=== PATIENT | male | born 1945 | race Caucasian/White ===

== ENCOUNTER → 2017-11-17 | Outpatient (CLI) | payer MEDICARE, OTHER ==
[~2017-11-17] MED LIST: ALFU10; ALLEGRA ALLERG180 M1; ANTARA30 MG PO; ASPI81CH PO; CVS FISH OIL 11 EACH PO; Exforge 10-3201 EACH PO; Ferrous Sulfat325 MG; HUMALOG KW200 UNIT/1 SQ; HYDCHL12.5; HYDR10; INSULANPEN; LISHYD2025 PO; NEBI5; PANT40 PO; SIMV40 PO; SPIR50 PO
[2017-11-18 10:59] LABS: Protein, Urine Quantitative 113.6 mg/dL (0.0-11.9)
== END ==
LOC: LAB 06:00
PROVIDERS: Internal Medicine
DX: N18.9 Chronic kidney disease, unspecified (principal); Z86.2 Personal history of diseases of the blood and blood-forming organs and certain disorders involving the immune mechanism
CPT/HCPCS: 81050; 82570; 84156

== ENCOUNTER → 2018-02-13 | Outpatient (CLI) | payer MEDICARE, OTHER ==
[2018-02-13 14:06] LABS: Albumin, Blood 3.4 g/dL (3.4-5.0); Anion Gap 6 mmol/L (6-16); Blood Urea Nitrogen 23 mg/dL (8-24); Bun/Creatinine Ratio 20.9 (12.0-20.0); CO2, Blood 24 mmol/L (21-32); Calcium, Blood 8.9 mg/dL (8.5-10.1); Chloride, Blood 109 mmol/L (98-108); Glomerular Filtration Rate >60 (60-); Glucose, Blood 209 mg/dL (70-99); Phosphorus, Blood 3.3 mg/dL (2.5-4.9); Sodium, Blood 139 mmol/L (136-145)
[2018-02-13 14:08] LABS: Appearance, Urine Clear (Clear); Bilirubin, Urine Neg (Neg); Blood, Urine Neg (Neg); Color, Urine Yellow (P-Yellow); Glucose Qualitative, Urine Neg (Neg); Ketones, Urine Neg (Neg); Leukocyte Esterase, Urine Neg (Neg); Nitrite, Urine Neg (Neg); Protein, Urine 3+ (Neg); Source, Urine Clean Catch; Urobilinogen, Urine NORM (Normal)
[2018-02-13 14:17] LABS: Protein, Urine Random 81.4 mg/dL (0.0-11.9)
[2018-02-13 15:46] LABS: Bacteria Not Seen /hpf; Red Blood Cells, Urine 0-2 /hpf (0-2); Squamous Epithelial Cells Few /hpf (Few); White Blood Cells, Urine 0-2 /hpf (0-5)
== END | disposition home or self-care (01) ==
LOC: LAB SHORT 12:10 → OLS 12:10
PROVIDERS: Internal Medicine
DX: N18.9 Chronic kidney disease, unspecified (principal)
CPT/HCPCS: 36415; 80069; 81001; 82570; 84156

== ENCOUNTER 2018-12-04 13:06 | Day surgery (SDC) | payer MEDICARE, OTHER ==
[~2018-12-04] VITALS: Ht 170.2 cm; Wt 108.1 kg
[~2018-12-04 13:06] MED LIST changes: +ALFU10 PO; +AMLO10 PO; +Aldactone100 MG PO; +Aspirin EC81 MG PO; +Avapro300 MG PO; +FISH OIL 1,0001 EAC1 PO; +Ferrous Sulfat325 M2 PO; +HYDCHL12.5 PO; +HYDRA25 PO; +Humalog Mi100 UNIT/4 SC; +INSULANPEN SC; +NEBI5 PO; +POLY500 PO; +Penlac6.6 ML TOP; +Super B Comple1 EAC2 PO; +Zocor20 MG PO
== END 2018-12-04 14:25 | disposition home or self-care (01) ==
LOC: ORSCSDS 13:06
PROVIDERS: Internal Medicine Gastroenterology
PROC: 0DB48ZX Excision of Esophagogastric Junction, Via Natural or Artificial Opening Endoscopic, Diagnostic (ICD-10-PCS; principal; 2018-12-04 13:00)
DX: K22.70 Barrett's esophagus without dysplasia (principal); K44.9 Diaphragmatic hernia without obstruction or gangrene; E11.9 Type 2 diabetes mellitus without complications; I10 Essential (primary) hypertension; B15.9 Hepatitis A without hepatic coma; G47.33 Obstructive sleep apnea (adult) (pediatric); K21.9 Gastro-esophageal reflux disease without esophagitis; E66.9 Obesity, unspecified; Z68.35 Body mass index [BMI] 35.0-35.9, adult; Z79.82 Long term (current) use of aspirin; Z79.4 Long term (current) use of insulin; Z79.899 Other long term (current) drug therapy
CPT/HCPCS: 82947; 88305; J7120

== ENCOUNTER 2021-03-31 17:24 | Inpatient (IN) | payer MEDICARE, OTHER ==
[~2021-03-31] VITALS: Ht 167.6 cm; Wt 90.1 kg
[~2021-03-31 17:24] MED LIST changes: +HUMALOG MI100 UNIT/1 SC; -Humalog Mi100 UNIT/4 SC
[2021-03-31 17:58] LABS: BASOPHILS ABSOLUTE AUTO 0.04 K/mm3 (0.00-0.23); BASOPHILS PERCENT AUTO 1 % (0-2); EOSINOPHILS ABSOLUTE AUTO 0.09 K/mm3 (0.00-0.68); EOSINOPHILS PERCENT AUTO 2 % (0-6); Hemoglobin 11.8 g/dL (13.5-17.5); IMMATURE GRAN ABSOLUTE AUTO 0.01 K/mm3 (0.00-0.10); IMMATURE GRAN PERCENT AUTO 0 % (0-1); LYMPHOCYTES ABSOLUTE AUTO 0.89 K/mm3 (0.84-5.20); LYMPHOCYTES PERCENT AUTO 17 % (21-46); MONOCYTES ABSOLUTE AUTO 0.45 K/mm3 (0.16-1.47); MONOCYTES PERCENT AUTO 9 % (4-13); Mean Corpuscular HGB Conc 33.7 g/dL (31.5-36.5); Mean Corpuscular Volume 92 fL (80-100); Mean Platelet Volume 10.8 fL (9.1-12.4); NEUTROPHILS ABSOLUTE AUTO 3.84 K/mm3 (1.96-9.15); NEUTROPHILS PERCENT AUTO 72 % (41-73); Platelet Count 148 K/mm3 (150-400); RDW Coefficient Variation 12.4 % (11.7-14.2); RDW Standard Deviation 41.7 fL (35.1-46.3); Red Blood Cell Count 3.81 M/mm3 (4.30-5.90); White Blood Cell Count 5.32 K/mm3 (4.00-11.30)
[2021-03-31 18:17] LABS: International Normalized Ratio 1.02
[2021-03-31 18:30] LABS: Alanine Aminotransfer (ALT/SGP 65 U/L (12-78); Albumin, Blood 3.3 g/dL (3.4-5.0); Albumin/Globulin Ratio 0.8 (0.8-1.8); Alk Phos 241 U/L (50-136); Anion Gap 5 mmol/L (6-16); Aspartate Aminotrans (AST/SGOT 38 U/L (12-37); Bilirubin, Total 0.4 mg/dL (0.1-1.0); Blood Urea Nitrogen 24 mg/dL (8-24); CO2, Blood 27 mmol/L (21-32); Calcium, Blood 9.1 mg/dL (8.5-10.1); Chloride, Blood 108 mmol/L (98-108); Creatinine, Blood 1.09 mg/dL (0.60-1.20); Globulin, Blood 4.2 g/dL (2.2-4.0); Glomerular Filtration Rate >60 (60-); Glucose, Blood 158 mg/dL (70-99); Potassium, Blood 4.4 mmol/L (3.5-5.5); Sodium, Blood 140 mmol/L (136-145); Total Protein, Blood 7.5 g/dL (6.4-8.2)
[2021-03-31] MEDS ORDERED: BASAGLAR K100 UNIT/1 SC ×2 (18:47→23:55)
[2021-03-31] MEDS ORDERED: TRAM50 (18:48)
[2021-03-31 19:14] LABS: Magnesium, Blood 1.5 mg/dL (1.6-2.4)
[2021-03-31 19:30] LABS: Source, Urine Clean Catch
[2021-03-31 19:40] LABS: Appearance, Urine Clear (Clear); Bilirubin, Urine Neg (Neg); Blood, Urine Neg (Neg); Color, Urine Yellow (P-Yellow); Glucose Qualitative, Urine Neg (Neg); Ketones, Urine Neg (Neg); Leukocyte Esterase, Urine Neg (Neg); Nitrite, Urine Neg (Neg); Protein, Urine 1+ (Neg); Specific Gravity, Urine 1.015 (1.003-1.022); Urobilinogen, Urine NORM (Normal)
[2021-03-31 22:11] LABS: Thyroid Stimulating Hormone 1.01 uIU/mL (0.360-4.800)
--- NOTE | 2021-04-01 04:23 | NUR ---
SHIFT SUMMARY RECIEVED REPORT FROM SANDIE SCHERER, ED @ 2230. ARRIVED TO MEDICAL FLOOR @ 2245 VIA [place]. TRANSFER ASSISTANCE REQUIRED FROM GURNEY TO BED. ORIENTED TO ROOM AND CALL SYSTEM. A/O, ABLE TO MAKE NEEDS KNOWN. COOPERATIVE WITH CARE. CALLS AND ANSWERS QUESTIONS APPROPRIATELY. NO C/O PAIN/DISCOMFORT. RECIEVED IV HYDRATIONS WITHOUT COMPLICATIONS. TELE RUNNING SR IN 60s PER A R SPECIALIST. APPEARED TO REST MINIMALLY SINCE ARRIVAL. CPAP/BIPAP PROTOCOL ORDERED BY ON-CALL PROVIDER; SET UP BY RT. NO ACUTE CHANGES NOTED. BED REMAINS IN LOWEST POSITION. CALL LIGHT AND BELONGINGS WITHIN REACH. CONTINUE WITH CURRENT PLAN OF CARE. REPORT TO JEFFREY SCHERER.
[2021-04-01 06:29] LABS: BASOPHILS ABSOLUTE AUTO 0.05 K/mm3 (0.00-0.23); BASOPHILS PERCENT AUTO 1 % (0-2); EOSINOPHILS ABSOLUTE AUTO 0.12 K/mm3 (0.00-0.68); EOSINOPHILS PERCENT AUTO 2 % (0-6); Hematocrit 33.6 % (37.0-53.0); Hemoglobin 11.4 g/dL (13.5-17.5); IMMATURE GRAN ABSOLUTE AUTO 0.02 K/mm3 (0.00-0.10); IMMATURE GRAN PERCENT AUTO 0 % (0-1); LYMPHOCYTES ABSOLUTE AUTO 0.81 K/mm3 (0.84-5.20); LYMPHOCYTES PERCENT AUTO 16 % (21-46); MONOCYTES ABSOLUTE AUTO 0.48 K/mm3 (0.16-1.47); MONOCYTES PERCENT AUTO 10 % (4-13); Mean Corpuscular HGB 30.6 pg (26.0-34.0); Mean Corpuscular HGB Conc 33.9 g/dL (31.5-36.5); Mean Corpuscular Volume 90 fL (80-100); Mean Platelet Volume 11.3 fL (9.1-12.4); NEUTROPHILS ABSOLUTE AUTO 3.57 K/mm3 (1.96-9.15); NEUTROPHILS PERCENT AUTO 71 % (41-73); Platelet Count 136 K/mm3 (150-400); RDW Coefficient Variation 12.3 % (11.7-14.2); RDW Standard Deviation 40.7 fL (35.1-46.3); Red Blood Cell Count 3.72 M/mm3 (4.30-5.90); White Blood Cell Count 5.05 K/mm3 (4.00-11.30)
[2021-04-01 06:47] LABS: Alanine Aminotransfer (ALT/SGP 58 U/L (12-78); Albumin, Blood 2.9 g/dL (3.4-5.0); Albumin/Globulin Ratio 0.8 (0.8-1.8); Alk Phos 212 U/L (50-136); Anion Gap 5 mmol/L (6-16); Aspartate Aminotrans (AST/SGOT 36 U/L (12-37); Bilirubin, Total 0.6 mg/dL (0.1-1.0); Blood Urea Nitrogen 20 mg/dL (8-24); Bun/Creatinine Ratio 22.8 (12.0-20.0); CHOL/HDL RATIO 2.2; CO2, Blood 26 mmol/L (21-32); Calcium, Blood 9.1 mg/dL (8.5-10.1); Chloride, Blood 108 mmol/L (98-108); Cholesterol 119 mg/dL (50-200); Creatinine, Blood 0.88 mg/dL (0.60-1.20); Globulin, Blood 3.8 g/dL (2.2-4.0); Glomerular Filtration Rate >60 (60-); Glucose, Blood 132 mg/dL (70-99); HDL Cholesterol 53 mg/dL (>39); LDL/HDL RATIO 0.8; Low Density Lipoprotein Chol 44 mg/dL (0-110); Potassium, Blood 4.3 mmol/L (3.5-5.5); Sodium, Blood 139 mmol/L (136-145); Total Protein, Blood 6.7 g/dL (6.4-8.2); Triglycerides 108 mg/dL (30-160); Very Low Density Lipoprot Chol 21 mg/dL (6-32)
--- NOTE | 2021-04-01 16:33 | NUR ---
mri, pt eval, in room, pt recommended snf for rehabilitation due to challenge walking and getting up to home, pt appeares to be less stable standing than he was this am, challenge for him to get legs over side of bed and sit up, states that it is better than he has been in 3 days, will continue to monitor and treat until share bsr with noc nurse
[2021-04-01 17:27] LABS: International Normalized Ratio 1.04; Prothrombin Time Results 11.2 Sec (9.7-11.5)
--- NOTE | 2021-04-01 18:47 | NUR ---
a+o, worked with pt, waiting for biopsy, call light in reach, infusing with no s/sx of infection or infiltration, will share bsr with pt and noc nurse and assess and treat pt until then
--- NOTE | 2021-04-02 03:54 | NUR ---
SHIFT SUMMARY A/O, ABLE TO MAKE NEEDS KNOWN. COOPERATIVE WITH CARE. CALLS AND ANSWERS QUESTIONS APPROPRIATELY. NO C/O PAIN/DISCOMFORT. TELE RUNNING SR IN 60s PER LOADERS. UP TO BATHROOM /c 2P MOD; PT FOLLOWING. APPEARED TO REST WELL OVERNIGHT. CPAP @ HS INITIALLY, BUT CHOSE NOT TO WEAR /p AROUND 0000. NO ACUTE CHANGES NOTED OVERNIGHT. BED REAMINED IN LOWEST POSITION; ALARM ON. CALL LIGHT AND BELONGINGS WITHIN REACH. CONTINUE WITH CURRENT PLAN OF CARE. REPORT TO ONCOMING RN.
[2021-04-02 04:54] LABS: BASOPHILS ABSOLUTE AUTO 0.05 K/mm3 (0.00-0.23); BASOPHILS PERCENT AUTO 1 % (0-2); EOSINOPHILS ABSOLUTE AUTO 0.12 K/mm3 (0.00-0.68); EOSINOPHILS PERCENT AUTO 2 % (0-6); Hematocrit 37.2 % (37.0-53.0); Hemoglobin 12.6 g/dL (13.5-17.5); IMMATURE GRAN ABSOLUTE AUTO 0.01 K/mm3 (0.00-0.10); IMMATURE GRAN PERCENT AUTO 0 % (0-1); LYMPHOCYTES ABSOLUTE AUTO 0.94 K/mm3 (0.84-5.20); LYMPHOCYTES PERCENT AUTO 17 % (21-46); MONOCYTES ABSOLUTE AUTO 0.49 K/mm3 (0.16-1.47); MONOCYTES PERCENT AUTO 9 % (4-13); Mean Corpuscular HGB 30.1 pg (26.0-34.0); Mean Corpuscular HGB Conc 33.9 g/dL (31.5-36.5); Mean Corpuscular Volume 89 fL (80-100); Mean Platelet Volume 10.9 fL (9.1-12.4); NEUTROPHILS ABSOLUTE AUTO 3.95 K/mm3 (1.96-9.15); NEUTROPHILS PERCENT AUTO 71 % (41-73); Platelet Count 165 K/mm3 (150-400); RDW Coefficient Variation 12.2 % (11.7-14.2); RDW Standard Deviation 39.8 fL (35.1-46.3); Red Blood Cell Count 4.18 M/mm3 (4.30-5.90); White Blood Cell Count 5.56 K/mm3 (4.00-11.30)
[2021-04-02 05:10] LABS: Anion Gap 2 mmol/L (6-16); Blood Urea Nitrogen 17 mg/dL (8-24); Bun/Creatinine Ratio 19.2 (12.0-20.0); CO2, Blood 28 mmol/L (21-32); Calcium, Blood 9.3 mg/dL (8.5-10.1); Chloride, Blood 106 mmol/L (98-108); Creatinine, Blood 0.89 mg/dL (0.60-1.20); Glomerular Filtration Rate >60 (60-); Glucose, Blood 111 mg/dL (70-99); Magnesium, Blood 1.5 mg/dL (1.6-2.4); Potassium, Blood 4.1 mmol/L (3.5-5.5); Sodium, Blood 136 mmol/L (136-145)
--- NOTE | 2021-04-02 10:40 | NUR ---
PT C/O INCREASED WEAKNESS PT SITTING UP IN CHAIR. FLIGHT DECK OFFICER IN ROOM. VSS. PT REPORTS "FEELING MORE WEAK. THIS MORNING I WAS ABLE TO PUSH MY SELF UP WITH MY ARMS AND NOW I CANT. I ALMOST FEEL LIKE I DID WHEN I CAME IN." PT A&O X4. LEFT ARM AND LEG SLIGHTLY WEAKER/SLOWER THAN RIGHT SIDE. PROFESSIONAL ADVISOR STRONG. SMILE EQUAL, TONGUE THRUST MIDLINE. UP WITH 2 ASSIST TO BED WITH FWW AND GAIT BELT. CALL TO DR GARCIA- SEE NEW ORDER.
--- NOTE | 2021-04-02 17:57 | NUR ---
SUMM- PT ALERT AND ORIENTED X4. THIS AM THE ONLY NEURO DEFICIT WAS L FOOT WEAKNESS. AT AROUND 1030 PT STARTED COMPLAINING OF INCREASING L ARM WEAKNESS IN ADDITION TO L FOOT WEAKNESS, ALSO TROUBLE FINDING WORDS OCCASIONALLY, AND A DROOP ABOVE R EYE. DR GARCIA NOTIFIED OF CHANGES, CT ORDERED- NO CHANGE FROM ORIGIONAL. PT WORKED WITH PT AND OT. ABLE TO AMBULATE TO [place] AND BATHROOM WITH WALKER AND GAIT BELT SBA, NEEDS CONT CUES TO STAY OVER WALKER AND NOT LEAN FORWARD, ALSO PT STANDS ON L SIDE OF WALKER. EXHAUSTED THIS PM AND FELL ASLEEP IN THE CHAIR. BACK TO BED, REQ TO HAVE DINNER SAVED TO HE CAN REST. CALL LIGHT IN REACH. PLAN FOR NECK BX 04/03
--- NOTE | 2021-04-03 05:22 | NUR ---
SHIFT SUMMARY AOX4-FORGETFUL LAST NIGHT, REPORTED HE FELT "CONFUSED" ANSWERED ORIENTATION QUESTIONS CORRECTLY. FOLLOWS DIRECTIONS. THIS AM PT REPORTS HE FEELS "SHARP A TACK." SLOW TO RESPOND, HAS DIFFICULTY FINDING WORDS @TIMES. ONLY GROSS MOVEMENT c LLE, ABLE TO RAISE UP & DOWN, CANT DO PEDAL PUSHES-WEAK. HAS WEAK GAIT, LEANS FORWARD & TO THE LEFT WHEN STANDING. DENIES PAIN, N/V OR SOB. WORE CPAP T/O NIGHT. SOFT TISSUE MASS ON BACK OF NECK, PLAN TO HAVE BIOPSY TODAY 04/03/21. CALL LIGHT IN REACH. [facility].
--- NOTE | 2021-04-03 18:11 | NUR ---
SHIFT SUMMARY PT AxOx4. PLEASANT AND COOPERATIVE WITH CARE. L SIDED WEAKNESS R/T CVA. PT REPORTS WEAKNESS FEELS WORSE TODAY. PT WORKED WITH PT/OT TODAY. REPORTED FEELING VERY TIRED AFTER THERAPIES. PT WENT FOR BIOPSY OF SOFT TISSUE MASS IN NECK TODAY. TODAY IS THE PATIENT'S BIRTHDAY. FAMILY IN TO VISIT AND CELEBRATE WITH HIM, WHICH BOOSTED PATIENT'S SPIRITS. PT IS 2 MAX ASSIST WITH FWW AND GB D/T GROSS MOVEMENT TO LLE. PT'S , CAITLIN BROUGHT IN FOOT BRACE FOR FOOT DROP IN L FOOT. PT REPORTED LOW APPETITE TODAY. REQUESTED HIS DINNER TRAY BE HELD SO HE CAN REST. PT DENIES PAIN. VITALS REVIEWED. CALL LIGHT IN REACH. DENIES ANY NEEDS AT THIS TIME.
--- NOTE | 2021-04-04 05:37 | NUR ---
SHIFT SUMMARY AOX3. ANSWERS ORIENTATION QUESTIONS CORRECTLY. SLOW TO RESPOND, STUTTERS, NEW GARBLED/SLURRED SPEECH THIS AM. NOTICED INCREASED WEAKNESS IN L SIDE COMPARED TO PREVIOUS NIGHT. NO LONGER CAN GROSSLY LIFT LLE & NEEDS HELP LIFTING LUE, STATES WEAKNESS IS R/T THERAPY "WORKING HIM HARD". REPORTS N/T T/O WHOLE L SIDE OF BODY. L HAND WATER SOFTENER INSTALLER WEAKER THEN R HAND. HEAD IS TILTING TO R SIDE, HAS NOTICABLE L FACIAL DROOP THIS AM. WHEN GIVING AM MEDS PT HAD DIFFICULTY FINDING HIS CUP & UNABLE TO FIND STRAW. WHEN DRINKING PT COUGHED, HAD WATER DRIP OUT SIDE OF MOUTH & HAD DIFFICULTY SWALLOWING PILL-ALL NEW FOR PT. NEW VISION CHANGES THIS AM, REPORTS HE CAN'T "FOCUS" & "CANT SEE YOUR FACE." WHEN ASKED HOW MANY FINGERS HELD UP PT UNABLE TO GET CORRECTLY & UNABLE TO REPORT GLOVE OR CLOTHING COLOR. INFORMED DR HILL AT 0612 OF NEW SYMPTOMS, HE ORDERED STAT HEAD CT & SP EVAL. VSS. TELE NSR @70. DENIES PAIN, N/V OR DYSPNEA. PT UNABLE TO USE URINAL INDEPENDENTLY SINCE VISION CHANGES. PT CURRENTLY DOWN @IMAGING, WILL INFORM ONCOMING NURSE OF CHANGES.
--- NOTE | 2021-04-04 17:10 | NUR ---
SHIFT SUMMARY PT Ax0x4. PLEASANT AND COOPERATIVE WITH CARE. SIGNIFICANT NEUROLOGICAL SYMPTOM CHANGE NOTED TODAY COMPARED TO YESTERDAY. PT DISPLAYED SLURRED SPEECH, GARBLED SPEECH, R FACIAL DROOP, VISUAL IMPAIRMENTS AND SEVERE WEAKNESS TO L EXTREMITIES. PT CALLED IN EARLY TO DISCUSS EVOLVING SYMPTOMS AND PLAN OF CARE. PT WORKED WITH PT/OT TODAY. CHANGED TO BEDREST/BEDPAN D/T SEVERE WEAKNESS. SPEECH EVAL TODAY- NEW SWALLOWING PRECAUTIONS IMPLEMENTED. PT HAD CT OF HEAD AND MRI OF HEAD TODAY. NEURO CONSULT PLACED TODAY BY DR GARCIA. DR GAVIRIA EXPECTED TO MEET WITH PATIENT, FAMILY AND DR GARCIA THIS EVENING. CARE PLAN STILL IN PROCESS. PT CURRENTLY RESTING IN BED WITH CALL LIGHT IN REACH. AT BEDSIDE. BOTH DENY ANY NEEDS AT THIS TIME.
--- NOTE | 2021-04-05 04:12 | NUR ---
SHIFT SUMMARY ADMITTED FOR CVA (SUBACUTE). LEFT SIDED DEFICITS. FULL CODE. PLAN IS FOR FAMILY AND HOSPITALIST TO DETERMINE A PLAN FOR ANTICOAGULATION THERAPY. DR GAVIRIA IS NEUROLOGY CONSULT. DYSPHAGIA PRECAUTIONS IN PLACE. MASS FOUND ON BACK OF THE NECK MAY BE DEALT WITH OUTPT, DR KNIGHT IS ONCOLOGY CONSULT. PT WILL NEED PHYSICAL, OCCUPATIONAL, AND SPEECH THERAPIES. CPAP @ HS FOR LUZMARIA. TELEMETRY: NSR @ 77 BPM (AFIB WAS NOTED ON ADMIT, SPONTANIOUSLY RESOLVED).
--- NOTE | 2021-04-05 14:00 | NUR ---
Review of patient and his witfe with chaplian to formulte a plan of support for all the changes and decions they will have to make. Will assess their needs.
--- NOTE | 2021-04-05 16:23 | NUR ---
Dr espana at bedside discussing pt needs and possible plans of care. Will follow up with pt plan may be transfer.
[2021-04-05 17:49] LABS: International Normalized Ratio 1.1; Prothrombin Time Results 11.8 Sec (9.7-11.5)
--- NOTE | 2021-04-05 18:32 | NUR ---
SHIFT SUMMARY NO ACUTE CHANGES T/O SHIFT, A&O, LEFT SIDED DEFICITS CONTINUE. WORKING WITH PT/OT/ST. CALM AND COOPERATIVE c CARE. ONCOLOGIST DISCUSSES c PT AND FAMILY BIOPSY RESULTS AND POSSIBLE TRANSFER TO [facility] FOR SURGICAL REMOVAL OF MASS. NO UPDATE AT THIS TIME OF WHEN TRANSFER WILL TAKE PLACE. HEPARIN DRIP ORDERED. ACCURATE WEIGHT PROVIDED TO PHARAMCY, WAITING MEDICATION AND DOSE ORDERS AT THIS TIME. WILL REPORT TO ONCOMING RN. PT DENIES ANY PAIN OR DISTRESS T/O SHIFT, DOES REPORT BEING UPSET REGARDING DIAGNOSIS. PT IS CURRENTLY RESTING IN BED WITH CALL LIGHT WITHIN REACH, DOES NOT TYPICALLY CALL. ROUTINE CHECKS COMPLETED AND FAMILY OFTEN PRESENT.
--- NOTE | 2021-04-06 00:54 | NUR ---
THIS LN TOOK OVER CARE ON 04/05/21 AT 2330 PATIENT IS A POST CVA PATIENT THAT HAS TRANSFERRED FROM THE MEDICAL FLOOR ON HEP GTT RUNNING AT 13UNITS/KG/HR AT 20ML/HR. PATIENT IS ALERT AND ORIENTATED X 4, ABLE TO MAKE NEEDS KNOWN AND FOLLOW COMMANDS, NIHSS WAS DONE FOR BASELINE UPON TRANSFERRING TO FLOOR, NIHSS 22, R-EYE PINPOINT AND SLUGGLISH, L-EYE 2 AND SLUGGLISH, L FIELD VISUAL CUT WITH RIGHT FIXED GAZE, INATTENTION TO LEFT. PATIENT WAS ABLE TO FOLLOW COMMANDS, LEFT ARM NOTED NON PURPOSEFUL MOVEMENT WITH NO MOVEMENT AGAINST GRAVITY NO SENSATION, LEFT LEG WAS NON PURPOSEFUL MOVEMENT WITH NO MOVEMENT AGAINST GRAVITY NO SENSATION, PATIENT HAS A LEFT SIDED FACIAL DROOP WITH NO SENSATION ON THE LEFT, PATIENT HAS DELAYED RESPONSE WITH MILD TO MODERATE EXPRESSIVE APAGHIA WHEN ASKED WHAT WAS TRANSPIRING IN THE PICTURE PATIENT STATED, " LOOKS LIKE THEY ARE BUILDING A HOUSE" PAIENT WAS ONLY ABLE TO SAY , "FIFTY" BUT UNABLE TO SAY FIFTY-FIFTY, " ALVARENGA" BUT NOT [place]Y, PATIENT WAS UNABLE TO TELL ME WHAT THE ITEMS WHERE IN THE PICTURE FOR GLOVE, ELADIA, ETC, MILD TO MODERATE DYSTHARIA NOTED WITH SLURRED WORDS BUT TELLIGIABLE, NIHSS IS IN THE CHART WITH HIS SCORES, HE IS A TWO HOUR NEURO CHECK AND THIS LN WILL CONTINUE TO MONITOR.
[2021-04-06 02:09] LABS: Hematocrit 37.3 % (37.0-53.0); Hemoglobin 12.9 g/dL (13.5-17.5); Mean Corpuscular HGB 30.8 pg (26.0-34.0); Mean Corpuscular HGB Conc 34.6 g/dL (31.5-36.5); Mean Corpuscular Volume 89 fL (80-100); Mean Platelet Volume 10.7 fL (9.1-12.4); Platelet Count 191 K/mm3 (150-400); RDW Coefficient Variation 12.4 % (11.7-14.2); RDW Standard Deviation 40.2 fL (35.1-46.3); Red Blood Cell Count 4.19 M/mm3 (4.30-5.90); White Blood Cell Count 6.22 K/mm3 (4.00-11.30)
[2021-04-06 02:25] LABS: Albumin, Blood 3.1 g/dL (3.4-5.0); Anion Gap 6 mmol/L (6-16); Blood Urea Nitrogen 38 mg/dL (8-24); Bun/Creatinine Ratio 29.9 (12.0-20.0); CO2, Blood 25 mmol/L (21-32); Calcium, Blood 9.1 mg/dL (8.5-10.1); Chloride, Blood 105 mmol/L (98-108); Creatinine, Blood 1.27 mg/dL (0.60-1.20); Glomerular Filtration Rate 59 (60-); Glucose, Blood 86 mg/dL (70-99); Phosphorus, Blood 3.8 mg/dL (2.5-4.9); Potassium, Blood 3.8 mmol/L (3.5-5.5); Sodium, Blood 136 mmol/L (136-145)
--- NOTE | 2021-04-06 13:17 | NUR ---
PT WITH SLIGHT NEURO IMPROVEMENT NOTED, PT WITH SLGIHT MOVEMENT OF LT HAND, BABINSKI REFELX INTACT TO FEET BIAT. PT A/O X4 (SEE ASSESSMENT). PT TOLERATES APPLESAUCE WITH MEDS VERY WELL AND THIN LIQUIDS, BUT HE SEEMS TO HAVE DIFFICULTY WITH MECHANICAL SOFT DIET. SPEECH THERAPY IS CONSULTED AND PT IS PLACED ON PUREE DIET AT THIS TIME.
--- NOTE | 2021-04-06 18:53 | NUR ---
SHIFT NOTE SEE NEURO ASSESSMENTS. PT C/O "JUMPING" LT LEG INTERMITTENTLY T/O THE DAY. PT REPORTS PAIN TO SARCOMA TO OCCIPUT BUT OTHERWISE DENIES PAIN. PT A/O X4 HE ANSWERS QUESTIONS APPROPRIATELY. VSS. HEPARIN INFUSING AT THIS TIME AND NS. PT HAD A POWERGLIDE PLACED BY ILENE SCHERER. FAMILY HAS BEEN IN TO SEE PT T/O THE DAY. PT WAS CHANGED TO PUREE DIET MECAHNICAL SOFT WAS TOO ADVANCED FOR PT.
[2021-04-07 04:46] LABS: Hematocrit 35.8 % (37.0-53.0); Hemoglobin 12.3 g/dL (13.5-17.5); Mean Corpuscular HGB 30.8 pg (26.0-34.0); Mean Corpuscular HGB Conc 34.4 g/dL (31.5-36.5); Mean Corpuscular Volume 90 fL (80-100); Mean Platelet Volume 10.7 fL (9.1-12.4); Platelet Count 168 K/mm3 (150-400); RDW Coefficient Variation 12.4 % (11.7-14.2); RDW Standard Deviation 41.2 fL (35.1-46.3); Red Blood Cell Count 3.99 M/mm3 (4.30-5.90); White Blood Cell Count 5.76 K/mm3 (4.00-11.30)
--- NOTE | 2021-04-07 05:01 | NUR ---
SENIOR HR GENERALIST SUMMARY NUERO MOSTLY UNCHANGED FROM PREVIOUS SHIFT EXCEPT PT BEGAN SHIFT WREPORT NO SENSATION IN L FOOT HOWEVER, THROUGHOUT THE SHIFT THE PT WAS ABLE TO REPORT SENSATION AND EVEN IDENTIFY WHICH TOE ON HIS LEFT FOOT WAS BEING GRABBED. PUPILS ARE NOW EQUAL BUT STILL SLUGGISH.NO MOVEMENT IN L HAND BUT MINOR SENSATION REPORTED. PT WILL SLIGHTLY PULL L FOOT AWAY WHEN BTUSHED AGAINST. SPEECH SLURRED BUT APPROPRIATE. PT AXO X3 ALTHOUGH WOKE UP MOMENTARILY CONFUSED EARLY THIS AM. L SIDED FACIAL DROOP UNCHANGED. NO HEADACHES REPORTED THIS SHIFT. BP WNL AND STABLE.O2 SATS >92% ON RM AIR, PT WEARING CPAP MOST OF THE NIGHT. SUCTION AT BEDSIDE ABD BED ALARM ON ALL SHIFT. REPOSITIONING Q2H AND ORAL CARE PROVIDED AFTER MED DELIVERY. WILL REPORT TO ONCOMING RN.
[2021-04-07 05:05] LABS: Anion Gap 5 mmol/L (6-16); Blood Urea Nitrogen 39 mg/dL (8-24); Bun/Creatinine Ratio 31.2 (12.0-20.0); CO2, Blood 25 mmol/L (21-32); Calcium, Blood 8.6 mg/dL (8.5-10.1); Chloride, Blood 108 mmol/L (98-108); Creatinine, Blood 1.25 mg/dL (0.60-1.20); Glomerular Filtration Rate 60 (60-); Glucose, Blood 78 mg/dL (70-99); Phosphorus, Blood 3.7 mg/dL (2.5-4.9); Sodium, Blood 138 mmol/L (136-145)
--- NOTE | 2021-04-07 11:05 | NUR ---
PT ALERT AND ORIENTED X3. CONFUSION THIS AM, BUT ONCE REORIENTED PT FEELING MORE CONFIDENT. ASKING REPETATIVE QUESTIONS. ABLE TO REDIRECT. ON ROOM AIR SATING ABOVE 94%. TELE SHOWING SINUS WITH HR 70'S. DENIES CHEST PAIN/PRESSURE. VITAL SIGNS STABLE. PERIPHERAL PULSES STRONG. BOWEL TONES PRESENT. CONDOM CATH IN PLACE. ATTENDS IN PLACE. USING CALL LIGHT APPROPRIATLY. ASPIRATION PRECAUTIONS IN PLACE. LEFT SIDED DEFICIT. PUPILS ROUND, REACTIVE, AND EQUAL. LEFT UPPER EXTREMITY WEAKNESS WITH FLACCIDITY. ABLE TO MAKE SMALL MOVEMENTS WITH FINGERS. LEFT LOWER EXTREMITY WEAKNESS WITH SMALL MINOR MOVMENTS AND RESPONSE TO STIMULI ON PLANTAR SURFACE OF FOOT. SENSATION IN ALL EXTREMITIES. WORKING WITH PT AND OT. LEFT SIDED FACIAL DROOP. CALLING FAMILY THIS AM ON PHONE. SLEEPING ON AND OFF. WILL CONTINUE TO MONITOR.
--- NOTE | 2021-04-07 12:39 | NUR ---
UPDATE: FAMILY AT BEDSIDE ASSISTING WITH LUNCH. PHYSICAL THERAPY IN TO WORK WITH PATIENT. PATIENT HIGHLY MOTIVATED AND WORKING ON EXERCISES THIS AFTERNOON. NO CHANGES IN NEURO. NO ACUTE CHANGES. PT PROGRESSING WELL. WILL CONTINUE TO MONITOR.
--- NOTE | 2021-04-07 18:48 | NUR ---
SHIFT SUMMARY: NO ACUTE CHANGES. PT REMAIN STABLE. NEURO UNCHANGING. LEG SPASMS IN LEFT LOWER EXTREMITY RELIEVED BY REPOSITIONING. GRANDDAUGHTER IN TO VISIT. ASSISTING PATIENT IN TURNING AND GAVE PATIENT LEFT SIDED MASSAGE. VITAL SIGNS STABLE. PT DOING WELL WITH MEDS ONE AT A TIME IN APPLESAUCE. CONDOM CATH IN PLACE. CALL LIGHT IN REACH. PT ATE ALMOST HIS WHOLE LUNCH TRAY. DRINKING WATER WELL. NOT HUNGRY AT THIS TIME FOR DINNER. WILL CONTINUE TO MONITOR AND REPORT OFF.
--- NOTE | 2021-04-07 21:45 | NUR ---
ASSUMED CARE NOTE: ASSUMED CARE OF PT AT 1900, RECEVIED REPORT FROM SELIN SCHERER. PT IS ALERT AND ORIENTED TO SELF, PLACE, FOLLOWING DIRECTIONS. PT IS FORGETFUL AT TIMES, REPEATS QUESTIONS. UNABLE TO RECALL SOME RECENT EVENTS. PT HAS SLIGHT LEFT FACIAL DROOP. UNABLE TO MOVE LEFT EXTREMITES ON COMMAND. PT HAS SLIGHT GROSS MOVEMENTS TO LEFT SHOULDER AND QUAD, UNABLE TO MOVE FEET/HANDS. PT STS HE CAN FEEL LEFT EXTREMITIES. PT IS ON HOME CPAP, SpO2 ABOVE 90% NO RESP DISTRESS NOTED. PT ON TELE MONITOR, READING NSR WITH HR IN THE 70'S , DENIES BP/SOB AT THIS TIME. PT IS INCONT OF URINE/STOOL, CONDOM CATH IN PLACE, DRAINING TO GRAVITY. SEE FULL ASSESSMENT, WILL CONTINUE TO MONITOR PT T/O SHIFT. BED AT LOWEST LEVEL, CALL LIGHT WITHIN REACH.
--- NOTE | 2021-04-08 02:22 | NUR ---
ARRIVAL PT ARRIVED TO MED FLOOR IN NO DISTRESS. PT TRANSFERED TO BED AND PLACED ON CPAP. PT DENIES ANY ISSUES. CALL LIGHT IN REACH.
--- NOTE | 2021-04-08 06:50 | NUR ---
SUMMARY NO NEW ISSUES NOTED. PT SLEPT W/ CPAP. CALL LIGHT6 IN REACH AND BED ALARM ON.
--- NOTE | 2021-04-08 18:05 | NUR ---
SHIFT SUMMARY NO ACUTE CHANGES NOTED TO PT THIS SHIFT. A&OX3, [place], ABLE TO MAKE NEEDS KNOWN. PLEASANT AND COOPERATIVE TO CARE. NO C/O PAIN OR ANY DISCOMFORT THIS SHIFT. PT CONDOM CATH IN PLACE. PT DENIES DYSURIA. PT REQUIRES 2P MAX ASSIST WITH BED MOBILITY AND TRANSFERS D/T L SIDED WEAKNESS. PT's AT BEDSIDE THIS SHIFT. BED AT LOWEST POSITION. CALL LIGHT WITHIN REACH.
--- NOTE | 2021-04-08 22:35 | NUR ---
2100 PT LYING IN BED, DENIES ANY DISCOMFORT AT THIS TIME. PT IS VERY WEAK ON L SIDE, SLIGHTLY WEAK ON R SIDE. BS WAS 185. USING A CONDOM CATH, URINE IS COULDY AND KELLY. BANDAID ON L SIDE OF NECK S/P BIOPSY. NO APPARENT SIGNS OF DISTRESS. PT DENIES NEED FOR ANYTHING AT THIS TIME. CALL LIGHT IS IN REACH.
--- NOTE | 2021-04-08 22:47 | NUR ---
PT LYING IN BED, EYES CLOSED, APPEARS TO BE RESTING. BREATHING IS EVEN, UNLABORED. NO APPARENT SIGNS OF DISTRESS. CALL LIGHT IS IN REACH.
--- NOTE | 2021-04-08 23:49 | NUR ---
PT LYING IN BED, EYES CLOSED, APPEARS TO BE RESTING. BREATHING IS EVEN, UNLABORED. NO APPARENT SIGNS OF DISTRESS. CALL LIGHT IS IN REACH.
--- NOTE | 2021-04-09 02:28 | NUR ---
PT LYING IN BED, EYES CLOSED, APPEARS TO BE RESTING. CPAP IS ON. NO APPARENT SIGNS OF DISTRESS. BREATHING IS EVEN, UNLABORED. CALL LIGHT IS IN REACH.
--- NOTE | 2021-04-09 03:19 | NUR ---
PT LYING IN BED, AWAKE, STATES HE IS DISCOMBOBULATED. PT IS AAO X 3 AT THIS TIME. NO OTHER APPARENT SIGNS OF DISTRESS. PT DENIES NEED FOR ANYTHING AT THIS TIME. CALL LIGHT IS IN REACH. BED ALARM IS ON.
--- NOTE | 2021-04-09 04:20 | NUR ---
PT IS AAO X 3-4, ON RA. ON CPAP AT NIGHT. CONT. BIOX. CONDOM CATH, URINE IS CLOUDY AND KELLY. VERY WEAK ON L SIDE, SLIGHT WEAKNESS ON R. BS AT HS WAS 135.
--- NOTE | 2021-04-09 05:19 | NUR ---
PT LYING IN BED, AWAKE, NO APPARENT SIGNS OF DISTRESS. DENIES NEED FOR ANYTHING AT THIS TIME. CALL LIGHT IS IN REACH. NO OTHER CHANGES THIS SHIFT.
[2021-04-09 05:22] LABS: Hematocrit 33.9 % (37.0-53.0); Hemoglobin 11.8 g/dL (13.5-17.5); Mean Corpuscular HGB Conc 34.8 g/dL (31.5-36.5); Mean Corpuscular Volume 89 fL (80-100); Mean Platelet Volume 10.5 fL (9.1-12.4); Platelet Count 158 K/mm3 (150-400); RDW Coefficient Variation 12.3 % (11.7-14.2); RDW Standard Deviation 40.2 fL (35.1-46.3); Red Blood Cell Count 3.81 M/mm3 (4.30-5.90); White Blood Cell Count 5.33 K/mm3 (4.00-11.30)
[2021-04-09 05:41] LABS: Albumin, Blood 2.9 g/dL (3.4-5.0); Anion Gap 6 mmol/L (6-16); Blood Urea Nitrogen 37 mg/dL (8-24); Bun/Creatinine Ratio 31.1 (12.0-20.0); CO2, Blood 25 mmol/L (21-32); Calcium, Blood 8.6 mg/dL (8.5-10.1); Chloride, Blood 105 mmol/L (98-108); Creatinine, Blood 1.19 mg/dL (0.60-1.20); Glomerular Filtration Rate >60 (60-); Glucose, Blood 120 mg/dL (70-99); Phosphorus, Blood 3.2 mg/dL (2.5-4.9); Potassium, Blood 4.2 mmol/L (3.5-5.5); Sodium, Blood 136 mmol/L (136-145)
--- NOTE | 2021-04-09 14:43 | NUR ---
RN requested visit from Palliative Care for discussion on end of life planning. Pt is lying on his left side, states he is getting uncomfortable in this position. Assisted him to turn onto right side, but within about 10 minutes, he was ready to change position again. I suggested he request pain medication, but he was hesitant. His also recommend he try taking pain medication, as he is only making it a few minutes before needing to reposition because of pain. His nurse going to give him an analgesic. Discussion on POLST done, and both pt and his have elected DNR with limited interventions. Left pt's filled out POLST in his room to be signed by MD. Pt's will take her POLST to her PCP to sign.
--- NOTE | 2021-04-09 19:23 | NUR ---
SHIFT SUMMARY PT A&O3-4, ABLE TO MAKE NEEDS KNOWN, PLEASANT AND COOPERATIVE TO CARE. MEDICATED FOR LOWER BACK PAIN PER EMAR. NO C/O CP, SOB, OR N&V. CONDOM CATH IN PLACE, PT DENIES DYSURIA. PT WORKED WITH PT THIS SHIFT. PT REQUIRES 2P MAX ASSIST WITH BED MOBILITY, LIFT WITH TRANSFERS. PT's AT BEDSIDE THIS SHIFT. BED AT LOWEST POSITION, CALL LIGHT WITHIN REACH.
--- NOTE | 2021-04-10 02:05 | NUR ---
76 year old Male who had RT sided CVA on his 76th Birthday continues with lt hemiparesis. gross movement lt UE, minimal movement lt LE. PT also dx this stay with neck & head cancer & DC planning to be nearer [facility] to work with Cancer specialist in [place]. PT has own CPAP & used all night. Has condonm cath patent drains courtney urine. Held HS semglee insulin BG was only 116 & not eating or drinking after dinner. Able to communicate, denies acute visual changes. 2 max for bed mobility turned & repositioned.
--- NOTE | 2021-04-10 18:00 | NUR ---
SHIFT SUMMARY NO ACUTE CHANGES NOTED TO PT THIS SHIFT. PT A&OX3-4, ABLE TO MAKE NEEDS KNOWN. PLEASANT AND COOPERATIVE TO CARE. NO C/O PAIN OR ANY DISCOMFORT THIS SHIFT. PT's AT BEDSIDE THIS SHIFT. PT WORKED WITH PT/OT THIS SHIFT. PT ALSO EVALUATED BY SPEECH THERAPY THIS SHIFT. BED AT LOWEST POSITION. CALL LIGHT WITHIN REACH.
--- NOTE | 2021-04-10 18:50 | NUR ---
Spiritual care note: Provided prayer and spiritual automobile club travel counselor to Mr. Paulson to good effect. He has a life-long clyde and a strong connection to his buddhism. He feels well-loved and supported by his and adult children. He is hoping for surgery at [facility]. I will remain available.
--- NOTE | 2021-04-11 05:18 | NUR ---
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 He did have fair use of lt UE with some strenth but lt LE continues with little movement. He has sats greater than 94% on cpap pts own or room air. Able to communicate. Needing dc plan near [facility] for neck & head cancer team. Has condom cath patent & drains courtney urine.
--- NOTE | 2021-04-11 17:59 | NUR ---
SHIFT SUMMARY EARNEST DENIED THIS SHIFT. CONDOM CATH WORKED WELL EXCEPT ONE INCONTINENCE EPISODE WHEN CONDOM CATH FELL OFF. LLE AND LUE HAVE GROSS MOVEMENT AND SOME SENSATION. SLIGHTLY CONFUSED THIS MORNING, MORE CONFUSED THIS AFTERNOON AFTER WAKING UP FROM NAP. COCCYX INTACT, SOME REDNESS BETWEEN BUTTOCKS, CALAZIME APPLIED. HIPS FLOATED ON PILLOWS. CHANGED TO DNR THIS SHIFT PER POLST THAT DR KELLY SIGNED. CBGS REQURING LOW LEVELS INSULIN. TOOK PILLS WELL WITH APPLESAUCE, ASP PRECAUTIONS FOLLOWED. POOR PO INTAKE, DOESN'T FEEL LIKE EATING. CALL LIGHT IN REACH, AT , [facility]
--- NOTE | 2021-04-11 18:15 | NUR ---
Spiritual care note: Provided supportive visit and prayer to spouse, Jennifer at bedside. Pt slept peacefully and appears well cared-for by nursing. I will remain available.
--- NOTE | 2021-04-12 03:59 | NUR ---
PT continues with lt sided hemiparesis post ischemic CVA. He is on room air uses own CPAP for must of shift. was in to visit & supportive. 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 He is planning to dc when arrangements are made to [place]. He needs to see Specialist at [facility] for head & neck cancer. PT has lt sided facial droop & has swallow deficit. Advanced to [facility] soft diet with nectar thick liquids. PT does not attempt to feed self this shift. Meds whole in applesauce tolerated well. Uses condom cath due to urinary incontinence which is patent. Needs 2 assist for bed mobility toileting.
--- NOTE | 2021-04-12 18:50 | NUR ---
SHIFT SUMMARY EARNEST HAD LOW UO THIS SHIFT, ONLY 400ML. VERY FRUSTRATED WITH THICKENER, HE REFUSED TO HAVE WATER WITH EVEN THE SLIGHTEST HINT OF THICKENER DESPITE THOROUGH EDUCATION ON WHY ITS NEEDED. STATES HE IS VERY THIRSTY. CALLED DR KELLY, HE ORDERED NS 500 CC OVER 5 HRS. PT UP TO JAKE WITH LIFT THIS SHIFT. INCONT URINE, CONDOM CATH INTACT. Q2 TURN IN BED. ASP PRECAUTIONS/MECH SOFT/THICKENED LIQUIDS. TOOK PILLS WHOLE IN APPLESAUCE. MOSTLY ORIENTED THIS SHIFT, BUT VERY UPSET WITH CARE (BED, THICKENER, ETC). VISITED. HAD CONVERSATION WITH AND PT REGUARDING COMFORT CARE/FULL COURT PRESS GOALS OF CARE. WANTS TO DECIDE WITH DAUGHTER AND ONCE HEAD AND NECK SURGERY CONSULT IN [place] IS DONE SO SHE KNOWS ALL THE FACTS TO MAKE A DECISION
--- NOTE | 2021-04-13 07:23 | NUR ---
SHIFT SUMMARY PT IS A 76 Y/O MALE, ADMITTED FOR CVA WITH L-SIDE DEFICITS. HE IS BEDREST LIFT PT, A&O X 2, WITH INTERMITTENT CONFUSION AND IRRITABLE WITH STAFF AT TIMES. NO C/O ACUTE PAIN, NAUSEA OR SOB. VITAL SIGNS STABLE. PT REPORTS HE DID NOT SLEEP WELL DURING THE NIGHT. NO OTHER ACUTE CHANGES IN PT CONDITION NOTED. REPORT GIVEN TO ONCOMING RN.
[2021-04-13 08:14] LABS: Hematocrit 35.8 % (37.0-53.0); Hemoglobin 12.2 g/dL (13.5-17.5)
[2021-04-13 08:31] LABS: Anion Gap 6 mmol/L (6-16); Blood Urea Nitrogen 39 mg/dL (8-24); Bun/Creatinine Ratio 31.7 (12.0-20.0); CO2, Blood 23 mmol/L (21-32); Calcium, Blood 9.3 mg/dL (8.5-10.1); Chloride, Blood 110 mmol/L (98-108); Creatinine, Blood 1.23 mg/dL (0.60-1.20); Glomerular Filtration Rate >60 (60-); Glucose, Blood 86 mg/dL (70-99); Magnesium, Blood 1.5 mg/dL (1.6-2.4); Potassium, Blood 4.6 mmol/L (3.5-5.5); Sodium, Blood 139 mmol/L (136-145)
--- NOTE | 2021-04-13 19:30 | NUR ---
PT REPOSITIONED Q2H AND WORKED WITH PT AND OT; PT'S VISITED AT BEDSIDE; PT INTERMITTENTLY CONFUSED TO PLACE AND TIME; DEFICITS ON L-S OF BODY; PT WAS INCONTINENT OF A LARGE MUSHY-CONSISTENCY BM; CONDOM CATHETER APPARATUS FUNCTIONED ADEQUATELY THROUGHOUT SHIFT; PT DENIED HUNGER AND REPORTED DIFFICULTY LIKING THE THICKENED FLUIDS; IN SPITE OF BEING ASSISTED WITH FEEDING AT ALL 3 MEALS, PT WAS UNABLE TO EAT AT LEAST 50% OF ANY MEAL; MAGNESIUM REPLETED PER MAR; PT DENIED ADDITIONAL CONCERNS AT THIS TIME
--- NOTE | 2021-04-14 07:22 | NUR ---
SHIFT SUMMARY PT IS A 76 Y/O MALE, ADMITTED FOR CVA C L-SIDE DEFICIT. HE IS A&O X 2-3, CONFUSED AND IRRITABLE AT TIMES. NO C/O ACUTE PAIN, NAUSEA OR SOB. VITAL SIGNS STABLE. PT SLEPT WELL THROUGH THE NIGHT. CONDOM CATHETER IN PLACE, PATENT AND DRAINING. NO ACUTE CHANGES IN PT CONDITION NOTED. WILL CONTINUE TO MONITOR AND TREAT PER EMAR UNTIL HAND OFF TO DAY SHIFT RN.
--- NOTE | 2021-04-14 17:00 | NUR ---
PT HAS BEEN AOX3 AND COOPERATIVE OF ALL CARE. PT CONTINUES TO HAVE L SIDED WEAKNESS, BUT TRYS REALLY HARD TO HELP WITH ANY CARE RECIEVED. PT DENIES PAIN AND IS INCONTENT/ CONTENENT OF BOWEL. PT HAS CONDOM CATH AT THIS TIME. PT IS A TWO PERSON Q2 TURN AT THIS TIME. WILL CONTINUE TO MONITOR.
[2021-04-15 05:04] LABS: Hematocrit 34.5 % (37.0-53.0); Hemoglobin 11.6 g/dL (13.5-17.5); Mean Corpuscular HGB 30.4 pg (26.0-34.0); Mean Corpuscular HGB Conc 33.6 g/dL (31.5-36.5); Mean Corpuscular Volume 90 fL (80-100); Mean Platelet Volume 10.5 fL (9.1-12.4); Platelet Count 161 K/mm3 (150-400); RDW Coefficient Variation 12.5 % (11.7-14.2); RDW Standard Deviation 41.1 fL (35.1-46.3); Red Blood Cell Count 3.82 M/mm3 (4.30-5.90); White Blood Cell Count 5.41 K/mm3 (4.00-11.30)
[2021-04-15 05:33] LABS: Anion Gap 4 mmol/L (6-16); Blood Urea Nitrogen 39 mg/dL (8-24); Bun/Creatinine Ratio 32.8 (12.0-20.0); CO2, Blood 24 mmol/L (21-32); Calcium, Blood 9.3 mg/dL (8.5-10.1); Chloride, Blood 112 mmol/L (98-108); Creatinine, Blood 1.19 mg/dL (0.60-1.20); Glomerular Filtration Rate >60 (60-); Glucose, Blood 132 mg/dL (70-99); Magnesium, Blood 1.6 mg/dL (1.6-2.4); Potassium, Blood 4.8 mmol/L (3.5-5.5); Sodium, Blood 140 mmol/L (136-145)
--- NOTE | 2021-04-15 05:48 | NUR ---
Patient is alert and orientated able to make needs known, slurred speech but tangiable. Patient left upper arm powerglide midline is no longer drawing for blood, Patient left side upper arm is flaccid some muscle movement is felt through touch, no decrease sensation on the left side, the left leg makes purposeful movement with some effort against gravity. Patient is able to use his call light, took all medications well with applesause no noted aspiration s/sx or latent coughing. Condom catether is in place and patent, catheter bag is below the bladder off the floor with clear yellow urine.
--- NOTE | 2021-04-15 17:34 | NUR ---
PT AO AND COOPERATIVE OF CARE. PT STARTED SHIFT A BIT DOWN ABOUT HIS CURRENT HEALTH AND BEING AT THE HOSPITAL. PT FELT HIS FOOD WAS NOT ACCEPTABLE. THE AID HAD TRIED TO HELP INCOURAGE PT TO EAT AND PT GOT MORE FRUSTRATED NOT LIKING HIS FOOD. HIS AID TRIED TO LET HIM KNOW HE NEEDS TO TRY AND EAT SO HE CAN BE ACCEPTED TO A REHAB FACILITY. DR KELLY AND THIS RELAY OPERATOR WERE ABLE TO DISCUSS CONCERNS WITH PT. THIS RELAY OPERATOR WILL HAVE DIETARY VISIT PT FRIDAY AND WORK WITH ST TO SEE IF THEY CAN FIGURE OUT SOME FOOD PT MAY FIND MORE APPEALING. PT CALLS APPROPRIATELY AND HAS BEEN CONTENT OF BOWELS. PT HAS CONDOM CATH IN PLACE WILL.PT TURNED Q2 HRS AND SHEETS PULLED SMOOTH FOR COMFORT. NO DISTRESS NOTED AT THIS TIME WILL CONTINUE TO MONITOR.
--- NOTE | 2021-04-16 06:41 | NUR ---
SHIFT SUMMARY AOX4 AT START OF SHIFT, PT SEEMS TO BECOME DELIRIOUS WHILE SLEEPING T/O NIGHT. PT USES HOME CPAP WHILE SLEEPING. VSS. SKIN PALE, WARM, DRY. RESPOSITIONED T/O SHIFT. RESTLESS, C/O L LEG SPASMING AT TIMES. THIS RN DID NOT WITNESS L LEG HAVING ANY SPASMING. BREATHING EVEN AND UNLABORED. PT TAKES PO MEDS WITH APPLESAUCE W/O DIFFICULTY. NS INFUSING PER ORDER THROUGH POWERGLIDE IN JOI. URINE DRAINING THROUGH CONDOM CATH INTO WAGNER BAG.
--- NOTE | 2021-04-16 17:00 | NUR ---
PT AOX3 AND COOPERATIVE OF CARE. PT CONTINUES TO GET A BIT DEPRESSED ABOUT HIS CONDITION. ALL CARE WORKERS HAVE BEEN WORKING VERY HARD WITH HIM TO HELP ENCOURAGE PT AND TO GET HIM WORKING GOOD WITH PHYSICAL THERAPY. PT ALSO HAS NOT LIKED HIS FOOD OPTIONS AND ST WORKED WITH HIM AT THE START OF SHIFT TRYING TO FIND SOME FOODS HE MIGHT LIKE WITH HIS SWALLOW PRECAUTIONS HE HAS IN PLACE. PT CALLS APPROPRIATELY. PT IS TURNED AND REPOSTIONED EVERY 2 HRS AND HAS CALL LIGHT WITHIN REACH. WILL CONTINUE TO MONITOR.
--- NOTE | 2021-04-17 06:13 | NUR ---
SHIFT SUMMARY AOX3, FORGETFUL @TIMES. REPORTED FEELING DISORIENTED THIS AM WHEN WOKEN UP, ABLE TO REORIENT. HS CBG @75, HELD SCHEDULED SEMGLEE. PER REPORT PT NOT EATING MUCH R/T LACK OF INTEREST IN DIET & FOOD AVAILABLE. THIS AM CBG @73, ABLE TO GIVE NECTAR CRANBERRY JUICE. L SIDED PARALYSIS, PT UNABLE TO MOVE. VSS. DENIES PAIN, N/V OR SOB. REPOSITIONED PRN. CONDOM CATH IN PLACE, PATENT & DRAINING CLEAR YELLOW URINE. CALL LIGHT IN REACH, BED ALARM IN PLACE. FORGETS TO USE CALL LIGHT & YELLS OUT FOR HELP, WCTM.
--- NOTE | 2021-04-17 19:33 | NUR ---
SHIFT SUMMARY UP IN CHAIR BY LIFT THIS AFTERNOON. WAS A BIT DISORIENTED WHEN FIRST WAKING FROM NAP AND SEEMED LESS ORIENTED AND MENTALLY CLEAR. ORAL TEMP TAKEN AND 101.0. MD NOTIFIED. AT BEDSIDE ON AND OFF THROUGH DAY. TENTATIVE PLANS TO GO TO LOCAL SNF IF ABLE TO BE TRANSPORTED TO [facility]. HAS GROSS MOTOR MOVEMENT TO ARM AND LEG.
[2021-04-18 01:47] LABS: Source, Urine Clean Catch
[2021-04-18 02:01] LABS: Amorphous Light (0-Heavy); Appearance, Urine Hazy (Clear); Bacteria Mod /hpf; Bilirubin, Urine Neg (Neg); Blood, Urine Neg (Neg); Color, Urine Yellow (P-Yellow); Glucose Qualitative, Urine Neg (Neg); Ketones, Urine Neg (Neg); Leukocyte Esterase, Urine 1+ (Neg); Nitrite, Urine Neg (Neg); Protein, Urine Neg (Neg); Red Blood Cells, Urine Not Seen /hpf (0-2); Squamous Epithelial Cells Rare /hpf (Few); Urobilinogen, Urine 1+ (Normal)
[2021-04-18 04:44] LABS: BASOPHILS ABSOLUTE AUTO 0.05 K/mm3 (0.00-0.23); BASOPHILS PERCENT AUTO 1 % (0-2); EOSINOPHILS ABSOLUTE AUTO 0.02 K/mm3 (0.00-0.68); EOSINOPHILS PERCENT AUTO 0 % (0-6); Hematocrit 32.3 % (37.0-53.0); Hemoglobin 11.2 g/dL (13.5-17.5); IMMATURE GRAN ABSOLUTE AUTO 0.01 K/mm3 (0.00-0.10); IMMATURE GRAN PERCENT AUTO 0 % (0-1); LYMPHOCYTES ABSOLUTE AUTO 0.88 K/mm3 (0.84-5.20); LYMPHOCYTES PERCENT AUTO 9 % (21-46); MONOCYTES PERCENT AUTO 7 % (4-13); Mean Corpuscular HGB 30.7 pg (26.0-34.0); Mean Corpuscular HGB Conc 34.7 g/dL (31.5-36.5); Mean Corpuscular Volume 89 fL (80-100); NEUTROPHILS ABSOLUTE AUTO 7.91 K/mm3 (1.96-9.15); NEUTROPHILS PERCENT AUTO 83 % (41-73); Platelet Count 159 K/mm3 (150-400); RDW Coefficient Variation 12.4 % (11.7-14.2); RDW Standard Deviation 40.8 fL (35.1-46.3); Red Blood Cell Count 3.65 M/mm3 (4.30-5.90); White Blood Cell Count 9.57 K/mm3 (4.00-11.30)
[2021-04-18 05:00] LABS: Albumin, Blood 2.7 g/dL (3.4-5.0); Anion Gap 7 mmol/L (6-16); Blood Urea Nitrogen 32 mg/dL (8-24); Bun/Creatinine Ratio 27.6 (12.0-20.0); CO2, Blood 23 mmol/L (21-32); Chloride, Blood 108 mmol/L (98-108); Creatinine, Blood 1.16 mg/dL (0.60-1.20); Glomerular Filtration Rate >60 (60-); Glucose, Blood 75 mg/dL (70-99); Phosphorus, Blood 3.6 mg/dL (2.5-4.9); Potassium, Blood 4.1 mmol/L (3.5-5.5); Sodium, Blood 138 mmol/L (136-145)
--- NOTE | 2021-04-18 05:03 | NUR ---
SHIFT SUMMARY AOX3, FORGETFUL & DISORIENTED @TIMES. L SIDE WEAKNESS/FLACCID, PT UNABLE TO MOVE. VSS. AFEBRILE. SBP <100, HELD HS HYDRALAZINE SINCE PT RECIEVED COREG @SHIFT CHANGE LAST NIGHT. UA COLLECTED & SENT TO LAB. TURNED PRN. CONDOM CATH IN PLACE, DRAINING CLEAR ORANGE URINE. AWAITING SNF PLACEMENT. CALL LIGHT & BED ALARM IN PLACE.
--- NOTE | 2021-04-18 18:55 | NUR ---
SHIFT SUMMARY PT UP IN CHAIR FOR BREAKFAST THIS MORNING USING A LIFT. REPORTED THE EGG CRATE PLACE ON HIS BED YESTERDAY MADE IT TOO DIFFICULT FOR HIM TO REPOSITION HIMSELF. NEEDED REMINDING HE HAS MORE DIFFICULTY MOVING HIMSELF DUE TO CVA. FIXATED ON SUBJECTS THIS MORNING AND REPEATED HIMSELF SEVERAL TIMES. AT BEDSIDE MIDDAY. NAPPED THIS AFTERNOON. VERY POOR APPETITE.
--- NOTE | 2021-04-19 06:38 | NUR ---
SHIFT SUMMARY ALERT, ABLE TO MAKE NEEDS KNOWN. COOPERATIVE WITH CARE. NO C/O PAIN/DISCOMFORT. APPEARED TO REST WELL OVERNIGHT. REPOSITIONED PRN. CONDOM CATH DRAINING TO GRAVITY. HELD DOSE OF SEMGLEE; BLOOD SUGAR 105. NO OTHER ACUTE CHANGES NOTED OVERNIGHT. BED IN LOWEST POSITION. CALL LIGHT AND BELONGINGS WITHIN REACH. CONTINUE WITH CURRENT PLAN OF CARE. REPORT TO ONCOMING RN.
--- NOTE | 2021-04-19 19:52 | NUR ---
SHIFT SUMMARY: NO ACUTE CHANGES TO REPORT THIS SHIFT. PT HX CVA c L SIDE WEAKNESS & NEGLECT. CONDOM CATH IN PLACE; PATENT & DRAINING. ASPIRATION PRECAUTIONS. LIFT PATIENT. EXPECTED D/C TO SNF. REPORT GIVEN TO ONCOMING RN.
--- NOTE | 2021-04-20 07:46 | NUR ---
SHIFT SUMMARY PT ALERT BUT APPEARS TO BE MORE CONFUSED THIS MORNING. ALTHOUGH HE IS AWARE ON WHERE HE IS AT AND WHAT'S GOING ON, HE IS MORE UNSURE COMPARED THAN LAST NIGHT. PT CONDOM CATH INTACT, PATENT AND DRAINING. ASPIRATION PRECAUTION, ABLE TO TAKE SMALL SIP OF WATER WITH NO ISSUE. HE LIKES TO DRINK ALKINE WATER FROM HOME. PT AWAITING FOR PLACEMENT TO [facility]. REPORT GIVEN TO ONCOMING NURSE.
--- NOTE | 2021-04-20 19:30 | NUR ---
SHIFT SUMMARY: NO ACUTE CHANGES TO REPORT THIS SHIFT. PT A&O; CALM AND COOPERATIVE WITH CARE. ISCHEMIC CVA c L SIDE WEAKNESS & NEGLECT; BEDREST; PHYSICAL THERAPY FOLLOWING; AWAITING PLACEMENT. REPORT GIVEN TO ONCOMING RN.
--- NOTE | 2021-04-20 23:22 | NUR ---
HELD HS GAYLA FOR CBG OF 114 AT 2030. WILL NOTIFY
--- NOTE | 2021-04-21 06:28 | NUR ---
EARNEST SLEPT WELL OVERNIGHT. WAS SOMEWHAT ANXIOUS EARLY IN THE EVENING HE WAS HAVING TROUBLE REACHING HIS . hE HAD NO COMPLAINTS OF PAIN OR DISCOMFORT OVERNIGHT, TOLERATED REPOSITIONING WELL REPLACEMENT OF HIS COMDOM CATH AROUND 2400. ANXIOUS TO BE MOVING AND OOB WITH THERAPY TODAY.
--- NOTE | 2021-04-21 16:52 | NUR ---
SHIFT SUMMARY PT ALERT; CONFUSED AT TIMES. PT AT BEDSIDE TODAY; PT DENIES PAIN OR SOB. PT VERY EMOTIONAL AND CRYING THIS MORNING. HE WAS FRUSTRATED ABOUT HIS SITUATION. PT WORKED WITH PHYSICAL THERAPIST TODAY AND FELT BETTER. BED IS IN THE LOWEST POSITION AND CALL LIGHT WITHIN REACH
--- NOTE | 2021-04-22 05:22 | NUR ---
PATIENT HAD A MORE RESTFUL NIGHT LAST NIGHT. EARNEST WAS PRETTY DOWN REGARDING HIS ASPECTS FOR REHAB DUE TO HIS STROKE. THIS RN POINTED OUT TO HIM THAT HE WAS ABLE WITHOUT ASSISTANCE TO COMPLETELY STRAIGHTEN OUT HIS LEFT LEG FROM A 90 DEGREE ANGLE DURING REPOSITIONING, AND THAT HE NEEDS TO REMAIN DETERMINED, TO GET THROUGH THIS ORDEAL, AND KNOW THAT IT IS GOING TO TAKE TIME. NO COMPLAINTS OF PAIN OR DISCOMFORT. SLEPT WELL AFTER THAT
--- NOTE | 2021-04-22 16:43 | NUR ---
SHIFT SUMMARY PT CONFUSED AT TIMES. WAS AT BEDSIDE TODAY AND DTR VISITED THE PT. PT IS A LIFT PT WITH 2 MAX ASSIST. NO C/O PAIN OR N/V. CREAM APPLIED ON THE BUTTOCK FOR PROTECTION. PT TAKES MEDS WITH APPLESAUCE. NO APPARENT DISTRESS. BED IS IN THE LOWEST POSITION AND CALL LIGHT WITHIN REACH
--- NOTE | 2021-04-22 20:08 | NUR ---
PATIENT COMPLAINING OF MULTIPLE LOOSE STOOLS TODAY. WHEN THIS RN AND THE NON FOOD RECEIVING CLERK CAME IN AT CHANGE OF SHIFT TO GET PATIENT CHANGED AND DO A SKIN CHECK, HE HAD A SMALL SMEAR OF BROWN ODOROUS STOOL. THEN CALLED ASKING FOR IMMODIUM TO " TREAT HIS DIARRHEA". SPOKE WITH HOSPITALIST WHO WANTED TO WATCH PATIENT OVERNIGHT AND SEE IF HE HAD ANY MORE ACTUAL LOOSE STOOLS AND TO NOTIFY IF SO. OTHERWISE RE-EVALUATE IN THE AM. NO IMMODIUM AT THIS TIME UNTIL SITUATION HAS BEEN EVALUATED AGAIN LATER
--- NOTE | 2021-04-22 22:32 | NUR ---
PATIENT UNABLE TO PRODUCE ANY MANJU AFTER TWO ATTEMPTS ON BEDPAN
--- NOTE | 2021-04-23 05:51 | NUR ---
ONLY CHANGES FOR EARNEST FUNK ARE THAT HE SEEMED MORE CONFUSED AND ANXIOUS OVERNIGHT. HE HAS ABRADED AREA ON PENIS AND CONDOM CATH WAS NOT REPLACED WHEN IT CAME OFF LAST NIGHT. PLEASE SEE NOTES REGARDING FAMILIES CONCERN FOR PATIENT'S BOWELS IN NURSES NURSES NOTES. NO STOOLS AT ALL LAST NIGHT PATIENT SLEPT WELL AFTER RECEIVING REQUESTED 10MG DOSE OF BENEDRYL AT HS.
--- NOTE | 2021-04-23 07:13 | NUR ---
held am Protonix as patient was sleeping well for the first time in several days. Briefs checked and were dry. Oncoming RN informed.
--- NOTE | 2021-04-23 08:19 | NUR ---
pt laying in bed with cover over face, woke easily, states he's cold is why he has cover over face, a/ox3 with periods of confusion, lungs are clear t/o, resp even and unlabored, no cough noted, hrr, no edema noted, ppp faint, iv site is power glide to teto, site clear and patent, btx4, last bm yesterday per pt and , incont of urine, skin has an excoriation to penis, attends in place, left side deficit, gross movement to left hand only, and no movement to left foot, smile is symetrical, swallows po meds with applesauce, mckenzie, call light in reach.
--- NOTE | 2021-04-23 11:50 | NUR ---
with pt. pt doing ok, no complaints. worked wiht O.T. call light in reach.
--- NOTE | 2021-04-23 19:26 | NUR ---
SUMMARY NO ACUTE CHANGES NOTED THROUGH THE DAY. PT DID COOPERATE WITH PHYSICAL THERAPY TODAY. PT C/O FOOD OPTIONS & VISITING POLICIES. PT WAS EDUCATED ON HIS CARE PLAN & REASON FOR MODIFIED FOOD. HE WAS ALSO EDUCATED ABOUT THE HOSPITAL VISITING POLICY. PT'S WAS AT THE BEDSIDE AT THIS TIME. PT APPEARS TO BE CONFUSED AT TIMES & ANGERS EASILY. HE IS TEARFUL AND STATES THAT HE "JUST WANTS TO GO HOME". REPORT GIVEN TO JOANNE RN. CALL LIGHT IN REACH
--- NOTE | 2021-04-24 04:52 | NUR ---
SHIFT SUMMARY A/O 2-3, SOME CONFUSION NOTED. COOPERATIVE WITH CARE. BEDREST WITH USE OF LIFT. Q2 REPOSITIONING AND ORAL CARE PRN. DENIES PAIN OR SOB AT THIS TIME. APPEARED TO SLEEP T/O THE NIGHT. BED IN LOWEST POSIITON WITH CALL LIGHT IN REACH. WILL CONTINUE TO MONITOR AND REPORT TO ONCOMING RN.
[2021-04-24 05:23] LABS: Hematocrit 33.1 % (37.0-53.0); Hemoglobin 11.4 g/dL (13.5-17.5); Mean Corpuscular HGB 30.6 pg (26.0-34.0); Mean Corpuscular HGB Conc 34.4 g/dL (31.5-36.5); Mean Corpuscular Volume 89 fL (80-100); Mean Platelet Volume 10.2 fL (9.1-12.4); Platelet Count 165 K/mm3 (150-400); RDW Coefficient Variation 12.3 % (11.7-14.2); RDW Standard Deviation 40.1 fL (35.1-46.3); Red Blood Cell Count 3.73 M/mm3 (4.30-5.90); White Blood Cell Count 5.82 K/mm3 (4.00-11.30)
[2021-04-24 05:59] LABS: Albumin, Blood 2.7 g/dL (3.4-5.0); Anion Gap 7 mmol/L (6-16); Blood Urea Nitrogen 61 mg/dL (8-24); Bun/Creatinine Ratio 45.5 (12.0-20.0); CO2, Blood 23 mmol/L (21-32); Chloride, Blood 108 mmol/L (98-108); Creatinine, Blood 1.34 mg/dL (0.60-1.20); Glomerular Filtration Rate 55 (60-); Glucose, Blood 108 mg/dL (70-99); Phosphorus, Blood 3.7 mg/dL (2.5-4.9); Sodium, Blood 138 mmol/L (136-145)
--- NOTE | 2021-04-24 18:30 | NUR ---
SHIFT SUMMARY: NO ACUTE EVENTS. MOOD IS LABILE, IS FRUSTRATED AND ANGERS EASILY, APPEARS DEPRESSED. DENIES PAIN. APPETITE IS POOR. WAS UP IN RECLINER FOR ABOUT 2 HOURS. VISITED FOR PART OF THE DAY.
--- NOTE | 2021-04-24 19:23 | NUR ---
Review of pt with PT will attempt visit with pt again for support . So far they have wanted to stay the course.
--- NOTE | 2021-04-25 04:13 | NUR ---
SHIFT SUMMARY A/OX2, PLEASANT AND COOPERATIVE WITH CARE. APPEARED TO SLEEP T/O THE NIGHT. VSS, NO ACUTE CHANGES AT THIS TIME. CURRENTLY WAITING FOR SNF PLACEMENT FOR SAFE D/C. BED IN LOWEST POSITION WITH CALL LIGHT IN REACH. WILL CONTINUE TO MONITOR AND REPORT TO ONCOMING RN.
[2021-04-25 05:10] LABS: Hematocrit 32.9 % (37.0-53.0); Hemoglobin 11.5 g/dL (13.5-17.5); Mean Corpuscular HGB 30.7 pg (26.0-34.0); Mean Corpuscular Volume 88 fL (80-100); Mean Platelet Volume 10.4 fL (9.1-12.4); Platelet Count 175 K/mm3 (150-400); RDW Coefficient Variation 12.4 % (11.7-14.2); RDW Standard Deviation 39.8 fL (35.1-46.3); Red Blood Cell Count 3.74 M/mm3 (4.30-5.90); White Blood Cell Count 5.89 K/mm3 (4.00-11.30)
[2021-04-25 05:33] LABS: Albumin, Blood 2.8 g/dL (3.4-5.0); Albumin/Globulin Ratio 0.7 (0.8-1.8); Bilirubin, Total 0.6 mg/dL (0.1-1.0); Calcium, Blood 9.3 mg/dL (8.5-10.1); Creatinine, Blood 1.35 mg/dL (0.60-1.20); Globulin, Blood 4.3 g/dL (2.2-4.0); Magnesium, Blood 1.8 mg/dL (1.6-2.4); Potassium, Blood 4.3 mmol/L (3.5-5.5); Total Protein, Blood 7.1 g/dL (6.4-8.2)
--- NOTE | 2021-04-25 18:16 | NUR ---
SHIFT SUMMARY: NO ACUTE EVENTS. DENIES PAIN. HAS GROSS MOVEMENT IN LLE AND LA. TOLERATING PO INTAKE, BUT APPETITE IS POOR, SAYS NOTHING TASTES RIGHT, IS HAVING DIFFICULTY FEEDING SELF AND DOESN'T WANT HELP. WAS UP IN CHAIR X 2 TODAY. COOPERATIVE WITH PT AND OT. BP SOFT THIS EVENING, CARVEDILOL HELD. STATED SHE WILL BE IN EARLY TOMORROW MORNING TO MEET WITH PROVIDERS AND THERAPISTS PRIOR TO PT TRANSFER TO [place].
--- NOTE | 2021-04-26 07:55 | NUR ---
EARNEST SLEPT WELL OVERNIGHT, ALTHOUGH HE STATED HE FEELS LIKE HE WOKE VERY CONFUSED IN THE MORNING, AND THIS REALLY CONCERNED HIM. I TRIED TO EXPLAIN TO HIM THAT LAST WEEK, HE WOULD NOT OF RECOGNIZED HE WAS HAVING TROUBLE KEEPING THINGS STRAIGHT. THIS RN REINFORCED THAT THOSE OF US WHO LEAVE AND COME BACK IN A COUPLE OF DAYS SEE MUCH MORE CLEARLY THAT HE IS MAKING IMPROVEMENTS. PATIENT FELT ENCOURAGED AND IS LOOKING FORWARD TO THE NEXT STEP.
--- NOTE | 2021-04-26 17:32 | NUR ---
SHIFT SUMMARY PT AxOx4 WITH OCCASIONAL MINOR CONFUSION. PT PLEASANT AND COOPERATIVE WITH CARE. PT WAS EXPECTING TO DC TODAY TO [facility], BUT BED WAS NOT AVAILABLE YET. PT'S IN FOR VISIT AND UPDATED ON PLAN OF CARE. PT REPORTED DECREASED APPETITE AND POOR INTAKE. DECLINED LUNCH. PT WORKED WITH PHYSICAL AND OCCUPATIONAL THERAPY TODAY. PT STILL HAS GROSS MOVEMENT TO L EXTREMITIES. VITALS REVIEWED. PT DENIES ANY PAIN OR CONCERNS AT THIS TIME. PT RESTING IN BED WITH CALL LIGHT IN REACH.
--- NOTE | 2021-04-27 05:56 | NUR ---
PATIENT SLEPT WELL OVERNIGHT WEARING CPAP. WAS VERY ALERT AND TALKATIVE JUST BEFORE BED. HE'S STILL A LITTLE BAFFLED ABOUT WHY HIS PLAN WAS DELAYED YESTERDAY. NO COMPLAINTS OF PAIN OR DISCOMFORT OVERNIGHT. CALLED TWICE FOR URINAL
[2021-04-27 14:52] LABS: SARS-Cov-2 (COVID-19) PCR, MMC NEGATIVE (NEGATIVE)
--- NOTE | 2021-04-27 18:18 | NUR ---
SHIFT SUMMARY PATIENT DENIES PAIN, NAUSEA, AND SHORTNESS OF BREATH. PATIENT UP IN RECLINER FOR SEVERAL HOURS TODAY. UP TWO MAX W/ GAIT BELT AND STEDY LIFT TO RECLINER. WORKED WITH PT AND OT, DECLINED TO WORK WITH ST. POOR APPETITE. COOPERATIVE WITH CARE. SNF DISCHARGE PENDING FOR 9AM FRIDAY MORNING. COVID SWAB COMPLETED AND NEGATIVE TODAY.
--- NOTE | 2021-04-28 04:00 | NUR ---
VASCULAR SURGEON SUMMARY PT A/O X4 WITH FORGETFULNESS. PT SLEPT WELL OVERNIGHT AFTER GIVEN MELATONIN ORDERED. PLEASANT AND COOPERATIVE. DENIES PAIN, SOB, NAUSEA. CPAP AT NIGHT. L ARM CONTINUES TO BE MOSTLY FLACCID WITH GROSS MOVEMENT IN THE L LEG. REPOSITIONING PROVIDED OVERNIGHT. NO ACUTE CHANGES. CALL LIGHT WITHIN REACH, BED ALARM ON. WILL CONTINUE TO MONITOR.
--- NOTE | 2021-04-28 11:59 | NUR ---
REFUSING MEALS. REFUSED BREAKFAST. PATIENT REFUSED ALTERNATIVES OFFERED BY THIS RN. STATES FOOD HAS NO TASTE. STATES FOOD "BALLS UP" IN HIS MOUTH AND HE CANNOT SWALLOW IT. ST SAW PATIENT AND OFFERED DOWNGRADE TO PUREE, PT DECLINED. PER ST, NO NEW CHANGES TO SWALLOW, CONTINUE RECOMMENDATIONS. CLINICAL LABORATORY MEDICAL DIRECTOR CONSULTED.
--- NOTE | 2021-04-29 04:24 | NUR ---
SHIFT SUMMARY ADMITTED FOR CVA. LEFT SIDED WEAKNESS. DNR CODE. PLAN IS FOR DC TO FACILITY IN [place] ON FRIDAY, THEN OUTPATIENT ONCOLOGY FOLLOW UP ALREADY SCHEDULED AT [facility] FOR SOFT TISSUE SARCOMA FOUND IN NECK. POWERGLIDE IS IN JOI. HE IS ON XARELTO. HE IS A SIT TO STAND LIFT PATIENT. PHYSICAL, OCCUPATIONAL, AND SPEECH THERAPIES ARE ASSISTING. HE USES HIS OWN CPAP AT PM. HE TELLS ME HE HAS LOST HIS TASTE FOR FOOD AND DOES NOT WANT TO EAT. RX GIVEN ONE AT A TIME W/APPLESAUCE. HE HAS BEEN HAVING DIARRHEA, SO BOWEL CARE SHOULD BE HELD. APRESOLINE HELD DUE TO SBP OUTSIDE OF GIVEN PARAMETERS.
[2021-04-29 05:07] LABS: Hematocrit 32.9 % (37.0-53.0); Hemoglobin 11.3 g/dL (13.5-17.5); Mean Corpuscular HGB 30.4 pg (26.0-34.0); Mean Corpuscular HGB Conc 34.3 g/dL (31.5-36.5); Mean Corpuscular Volume 88 fL (80-100); Mean Platelet Volume 10.8 fL (9.1-12.4); Platelet Count 151 K/mm3 (150-400); RDW Coefficient Variation 12.5 % (11.7-14.2); RDW Standard Deviation 40.2 fL (35.1-46.3); Red Blood Cell Count 3.72 M/mm3 (4.30-5.90); White Blood Cell Count 5.55 K/mm3 (4.00-11.30)
[2021-04-29 05:59] LABS: Albumin, Blood 2.7 g/dL (3.4-5.0); Albumin/Globulin Ratio 0.7 (0.8-1.8); Bilirubin, Total 0.6 mg/dL (0.1-1.0); Calcium, Blood 9.1 mg/dL (8.5-10.1); Creatinine, Blood 1.5 mg/dL (0.60-1.20); Globulin, Blood 4.1 g/dL (2.2-4.0); Magnesium, Blood 1.8 mg/dL (1.6-2.4); Potassium, Blood 4.6 mmol/L (3.5-5.5); Total Protein, Blood 6.8 g/dL (6.4-8.2)
--- NOTE | 2021-04-30 05:11 | NUR ---
LAYER OUT SUMMARY PT A/O X4 WITH FORGETFULNESS. DENIES PAIN, NAUSEA, SOB. SLEPT WELL TONIGHT. VSS, NO ACUTE CHANGES. REPOSITIONING PROVIDED THROUGHOUT THE NIGHT. ABLE TO MAKES NEEDS KNOWN. L ARM FLACID WITH GROSS MOVEMENT IN L LEG. PT ALSO HAS LEFT SIDED NEGLECT FROM CVA. VSS. CPAP ON DURING THE NIGHT. NO ACUTE CHANGES. CALL LIGHT WITHIN REACH, WILL CONTINUE TO MONITOR.
[2021-04-30 13:23] LABS: SARS-Cov-2 (COVID-19) PCR, MMC NEGATIVE (NEGATIVE)
--- NOTE | 2021-04-30 16:16 | NUR ---
Shift Summary A/Ox3, occassional forgetfulness. Denies pain, nausea, vomiting, shortness of breath. Cooperative with care and repositioning. at bedside for most of the day and assists patient with meals. Calls appropriately for needs. Awaiting discharge to [facility] [place] tomorrow. Worked with PT/OT. Tele: Afib 70's. WAYLON.
--- NOTE | 2021-05-01 05:55 | NUR ---
PATTERN WORKER SUMMARY NO ACUTE CHANGES THIS SHIFT. PT AAOX3. ASSISTED WITH REPOSITIONING AND ATTENDS CHANGES/URINAL USE ALLOWED BY PT. PT FREQUENTLY REFUSES REPOSITIONING. PT HAS SLEPT WELL WITH HOME CPAP TONMELISA. DENIES PAIN. PT TO DC TO FACILITY IN [place] LATER TODAY. YOVANNY FROM [facility] CALLED BLESSING TO CONFIRM TRANSPORT TIME OF 1115 TODAY AND TO CALL [phone] IF THOSE PLANS CHANGE. VSS, WILL CONTINUE TO MONITOR.
[2021-05-01] MEDS ORDERED: TAMS.4ER PO (10:31)
[2021-05-01] MEDS ORDERED: Acetaminophen650 M1 PO (10:32)
[2021-05-01] MEDS ORDERED: BASAGLAR K100 UNIT/6 SC (10:32)
[2021-05-01] MEDS ORDERED: CARV6.25 PO (10:33)
[2021-05-01] MEDS ORDERED: INSULIN LI100 UNIT/6 SC (10:36)
[2021-05-01] MEDS ORDERED: XARELTO20 MG PO (10:36)
[2021-05-01] MEDS ORDERED: THERA-D2000 UNIT PO (10:36)
[2021-05-01 10:40] LABS: C DIFFICILE DNA NEGATIVE (Negative)
--- NOTE | 2021-05-01 12:20 | NUR ---
Discharge Summary Discharging to [facility]. Report called to receiving nurse Desmond @ 1147. A/Ox3 with intermittent confusion. Transporting via reclining w/c with [facility]. Personal belongings sent with Jennifer. Discharge packet given to mule driver. [id number] for transferring from chair to w/c. Patient had a couple of loose watery sour stools this shift, sent to lab per V.O. from Dr. Durham for C-diff r/o. Continent/Incontinent of bowel and bladder. Appetite is poor. Med rec completed. PG removed, WNL.
== END 2021-05-01 12:22 | DRG 65 ==
LOC: ER 17:24 → MEDS 21:41 → PCU 04-05 23:30 → MEDS 04-08 00:25 → ENPENDDIS 04-30 08:51 → MEDS 05-01 12:22
PROVIDERS: Emergency Medicine; Family Medicine; Internal Medicine; Nurse Practitioner Acute Care; Physician Assistant; ADMIT Internal Medicine
PROC: 0JB53ZX Excision of Left Neck Subcutaneous Tissue and Fascia, Percutaneous Approach, Diagnostic (ICD-10-PCS; principal; 2021-04-03)
DX: I63.89 Other cerebral infarction (principal); G81.94 Hemiplegia, unspecified affecting left nondominant side; Z66 Do not resuscitate; C76.0 Malignant neoplasm of head, face and neck; Z20.822 Contact with and (suspected) exposure to COVID-19; E83.42 Hypomagnesemia; J39.2 Other diseases of pharynx; M21.372 Foot drop, left foot; E86.0 Dehydration; I48.0 Paroxysmal atrial fibrillation; E66.9 Obesity, unspecified; Z68.35 Body mass index [BMI] 35.0-35.9, adult; G47.33 Obstructive sleep apnea (adult) (pediatric); I10 Essential (primary) hypertension; E78.5 Hyperlipidemia, unspecified; E11.42 Type 2 diabetes mellitus with diabetic polyneuropathy; R13.10 Dysphagia, unspecified; K21.9 Gastro-esophageal reflux disease without esophagitis; E11.22 Type 2 diabetes mellitus with diabetic chronic kidney disease; N18.9 Chronic kidney disease, unspecified; F32.9 Major depressive disorder, single episode, unspecified; N40.0 Benign prostatic hyperplasia without lower urinary tract symptoms; K75.81 Nonalcoholic steatohepatitis (NASH); K74.60 Unspecified cirrhosis of liver; Z96.653 Presence of artificial knee joint, bilateral; Z90.49 Acquired absence of other specified parts of digestive tract; Z79.4 Long term (current) use of insulin; Z79.899 Other long term (current) drug therapy; Z98.890 Other specified postprocedural states; Z90.89 Acquired absence of other organs; Z79.82 Long term (current) use of aspirin
CPT/HCPCS: 21550; 36415; 70450; 70491; 70551; 70553; 71045; 71260; 74177; 76536; 77012; 80048; 80053; 80061; 80069; 81001; 82105; 82565; 82947; 83036; 83735; 84443; 84484; 85014; 85018; 85025; 85027; 85610; 85730; 86140; 86304; 87077; 87086; 87186; 87493; 88305; 88341; 88342; 92507; 92523; 92526; 92610; 93005; 93010; 93306; 93880; 93926; 93971; 94660; 94760; 94762; 97110; 97112; 97116; 97129; 97162; 97166; 97168; 97530; 97535; 99285-25; A9270; A9579; C1751; J1644; J1650; J3475; J7030; Q9967; U0004

== ENCOUNTER 2021-11-30 13:19 | Day surgery (SDC) | payer MEDICARE, OTHER ==
[~2021-11-30] VITALS: Ht 170.2 cm; Wt 88.5 kg
[~2021-11-30 13:19] MED LIST changes: +ALDACTONE100 MG PO; +ATOR40TA PO; +Acetaminophen650 M1 PO; +BASAGLAR K100 UNIT/1 SC; +BASAGLAR K100 UNIT/6 SC; +CALCIUM 500 MG1 EAC2 PO; +CARV6.25 PO; +FISH OIL 1,2001 EAC1 PO; +Fibercon625 MG PO; +HUMALOG KW200 UNIT/2 SC; +INSULANI SC; +INSULIN LI100 UNIT/6 SC; +Prozac20 MG PO; +TAMS.4ER PO; +THERA-D2000 UNIT PO; +TRAM50; +Vitamin B Comple1 EA PO; +XARELTO20 MG PO; +Zocor40 MG PO
[2021-11-30] MEDS ORDERED: XARELTO20 MG (13:42)
--- NOTE | 2021-11-30 14:29 | NUR ---
11/30/21 1429 Thuy Young lidocaine 4% breathing treatment started per orders
== END 2021-11-30 15:37 | disposition home or self-care (01) ==
LOC: ORSCSDS 13:19
PROVIDERS: Internal Medicine Gastroenterology
PROC: 0DB58ZX Excision of Esophagus, Via Natural or Artificial Opening Endoscopic, Diagnostic (ICD-10-PCS; principal; 2021-11-30 14:00)
DX: K22.70 Barrett's esophagus without dysplasia (principal); K44.9 Diaphragmatic hernia without obstruction or gangrene; Z13.810 Encounter for screening for upper gastrointestinal disorder; I10 Essential (primary) hypertension; K21.9 Gastro-esophageal reflux disease without esophagitis; G47.33 Obstructive sleep apnea (adult) (pediatric); E11.42 Type 2 diabetes mellitus with diabetic polyneuropathy; K75.81 Nonalcoholic steatohepatitis (NASH); I48.0 Paroxysmal atrial fibrillation; Z79.01 Long term (current) use of anticoagulants; Z79.4 Long term (current) use of insulin; Z86.73 Personal history of transient ischemic attack (TIA), and cerebral infarction without residual deficits; Z79.899 Other long term (current) drug therapy
CPT/HCPCS: 82947; 88305; J2001; J2704; J7120

== ENCOUNTER → 2022-04-10 | Outpatient (CLI) | payer MEDICARE, OTHER ==
[~2022-04-10] MED LIST changes: +XARELTO20 MG
[2022-04-11 11:55] LABS: Stool Occult Bld Immuno 1 Negative (NEGATIVE); Stool Occult Bld Immuno 2 Negative (NEGATIVE); Stool Occult Bld Immuno 3 Negative (NEGATIVE)
== END | disposition home or self-care (01) ==
LOC: LAB SHORT 09:00
PROVIDERS: Internal Medicine
DX: D64.9 Anemia, unspecified (principal)
CPT/HCPCS: G0328

== ENCOUNTER 2022-08-10 13:43 | Emergency (ER) | payer MEDICARE, OTHER ==
[~2022-08-10] VITALS: Ht 175.3 cm; Wt 95.2 kg
[2022-08-10 14:20] LABS: BASOPHILS ABSOLUTE AUTO 0.02 K/mm3 (0.00-0.23); BASOPHILS PERCENT AUTO 0 % (0-2); EOSINOPHILS ABSOLUTE AUTO 0.02 K/mm3 (0.00-0.68); EOSINOPHILS PERCENT AUTO 0 % (0-6); Hematocrit 28.8 % (37.0-53.0); Hemoglobin 9.5 g/dL (13.5-17.5); IMMATURE GRAN ABSOLUTE AUTO 0.01 K/mm3 (0.00-0.10); IMMATURE GRAN PERCENT AUTO 0 % (0-1); LYMPHOCYTES ABSOLUTE AUTO 0.21 K/mm3 (0.84-5.20); LYMPHOCYTES PERCENT AUTO 4 % (21-46); MONOCYTES ABSOLUTE AUTO 0.33 K/mm3 (0.16-1.47); MONOCYTES PERCENT AUTO 6 % (4-13); Mean Corpuscular Volume 85 fL (80-100); Mean Platelet Volume 10.7 fL (9.1-12.4); NEUTROPHILS ABSOLUTE AUTO 4.54 K/mm3 (1.96-9.15); NEUTROPHILS PERCENT AUTO 89 % (41-73); Platelet Count 156 K/mm3 (150-400); RDW Coefficient Variation 14.9 % (11.7-14.2); RDW Standard Deviation 46.5 fL (35.1-46.3); Red Blood Cell Count 3.39 M/mm3 (4.30-5.90); White Blood Cell Count 5.13 K/mm3 (4.00-11.30)
[2022-08-10 14:56] LABS: Influenza A, PCR NEGATIVE (NEGATIVE); Influenza B, PCR NEGATIVE (NEGATIVE); Resp Syncytial Virus, PCR NEGATIVE (NEGATIVE)
[2022-08-10 15:02] LABS: Albumin, Blood 2.4 g/dL (3.4-5.0); Albumin/Globulin Ratio 0.6 (0.8-1.8); Bilirubin, Total 0.5 mg/dL (0.1-1.0); Bun/Creatinine Ratio 18.8 (12.0-20.0); Creatinine, Blood 0.96 mg/dL (0.60-1.20); Globulin, Blood 4.2 g/dL (2.2-4.0); Potassium, Blood 4.6 mmol/L (3.5-5.5); Total Protein, Blood 6.6 g/dL (6.4-8.2)
[2022-08-10] MEDS ORDERED: ALFUZOSIN HCL10 MG PO (15:12)
[2022-08-10 15:22] LABS: SARS-Cov-2 (COVID-19) PCR, MMC POSITIVE (NEGATIVE)
== END 2022-08-10 17:20 | disposition home or self-care (01) ==
LOC: ER 13:43
PROVIDERS: Emergency Medicine
DX: U07.1 COVID-19 (principal); E11.9 Type 2 diabetes mellitus without complications; Z86.73 Personal history of transient ischemic attack (TIA), and cerebral infarction without residual deficits; Z88.5 Allergy status to narcotic agent; Z79.899 Other long term (current) drug therapy; Z79.4 Long term (current) use of insulin; Z79.01 Long term (current) use of anticoagulants
CPT/HCPCS: 0241U; 36415; 71045; 80053; 85025; 93005; 93010; 96374; 99285-25; A9270; J0456; J0696; J7050; M0222